=== PATIENT | female | born 1945 | race Caucasian/White ===

== ENCOUNTER 2022-10-17 12:00 | Emergency (ER) | payer MEDICARE, OTHER ==
[2022-10-17] MEDS ORDERED: Morphine 2 MG/ML SYRINGE IVPUSH ONE (12:14)
[2022-10-17 12:35] LABS: CHLORIDE,CL 103 mEq/L (98-106); SODIUM,NA 137 mEq/L (136-145)
[2022-10-17 12:41] LABS: ESTIMATED GFR 88 mL/min (>=60)
[2022-10-17 12:42] LABS: PTT,PARTIAL THROMBOPLSTIN TIME 31.9 SEC (20.0-30.0)
[2022-10-17] MEDS ORDERED: Sodium Chloride 0.9% 250 ML IV SCH (13:15)
[2022-10-17] MEDS ORDERED: Sodium Chloride 0.9% 1,000 ML IV STA (13:43)
== END 2022-10-17 14:30 ==
LOC: CC.ED 12:00
DX: I21.4 Non-ST elevation (NSTEMI) myocardial infarction (principal); D64.9 Anemia, unspecified; Z79.82 Long term (current) use of aspirin
CPT/HCPCS: 36415; 36430; 71045; 80053; 82550; 83615; 83690; 83735; 84484; 85025; 85610; 85730; 86850; 86900; 86901; 86920; 86922; 93005; 93010; 96361; 96374; 99285; 99285-25; J2270; J7030; P9016

== ENCOUNTER 2022-12-11 14:11 | Observation (INO) | payer MEDICARE, OTHER ==
[2022-12-11 14:28] LABS: BASOPHILS ABSOLUTE AUTO 0.06 10^3/uL (0.00-0.50); BASOPHILS PERCENT AUTO 0.6 % (0-1); HEMOGLOBIN 7.5 g/dL (12.0-16.0); IMMATURE GRAN ABSOLUTE AUTO 0.02 10^3/uL (0.00-0.49); IMMATURE GRAN PERCENT AUTO 0.2 % (0.0-4.9); LYMPHOCYTES ABSOLUTE AUTO 1.26 10^3/uL (0.60-5.00); LYMPHOCYTES PERCENT AUTO 13.5 % (24-44); MEAN CORPUSCULAR HEMOGLOBIN 27.2 pg (27.0-32.0); MEAN CORPUSCULAR VOLUME 90.6 fL (83.0-97.0); MONOCYTES ABSOLUTE AUTO 0.77 10^3/uL (0.00-1.50); MONOCYTES PERCENT AUTO 8.3 % (0-10); NEUTROPHILS ABSOLUTE AUTO 7.19 x10^3/uL (1.80-8.00); NEUTROPHILS PERCENT AUTO 77.4 % (41-71); PLATELET COUNT,PLT 425 10^3/uL (150-400); RED BLOOD CELL COUNT 2.76 x10^6/uL (4.00-5.50); WHITE BLOOD CELL COUNT,WBC 9.3 10^3/uL (4.0-11.0)
[2022-12-11 14:34] LABS: BLOOD UREA NITROGEN,BUN 21 mg/dL (7-18); CALCIUM 8.8 mg/dL (8.4-10.1); CARBON DIOXIDE,CO2 25 mmol/L (21-32); CHLORIDE,CL 102 mEq/L (98-106); CREATININE 0.8 mg/dL (0.6-1.0); GLUCOSE RANDOM 152 mg/dL (75-99); POTASSIUM,K 3.6 mEq/L (3.5-5.0); SODIUM,NA 135 mEq/L (136-145)
[2022-12-11 14:35] LABS: COLOR,URINE YELLOW (YELLOW); GLUCOSE,URINE NEGATIVE (NEGATIVE); KETONES,URINE 15 mg/dL (NEGATIVE); LEUKOCYTE ESTERASE,URINE SMALL (NEGATIVE); NITRITE,URINE NEGATIVE (NEGATIVE); OCCULT BLOOD,URINE MODERATE (NEGATIVE); PH,URINE 5.5 (4.5-8.0); PROTEIN,URINE 30 mg/dL (NEGATIVE); UROBILINOGEN,URINE 0.2 EU/dL (0.2-1.0)
[2022-12-11 14:37] LABS: APPEARANCE,URINE SLIGHTLY CLOUDY (CLEAR)
[2022-12-11 14:38] LABS: ESTIMATED GFR 75 mL/min (>=60)
[2022-12-11 14:41] LABS: BILIRUBIN,URINE SMALL (NEGATIVE)
[2022-12-11 14:46] LABS: BACTERIA,URINE FEW /HPF (NOT SEEN); EPITHELIAL CELLS,URINE MODERATE /HPF (NOT SEEN); MUCUS,URINE FEW /HPF (NOT SEEN); WBC,URINE 40-50 /HPF (0-5)
[2022-12-11] MEDS ORDERED: Acetaminophen 325 MG Tab PO PRN (15:58)
[2022-12-11] MEDS ORDERED: Ondansetron 4 MG Tab.DIS PO PRN (15:58)
[2022-12-11] MEDS ORDERED: Sodium Chloride 0.9% 500 ML IV ONE (16:00)
[2022-12-11] MEDS ORDERED: Sodium Chloride 0.9% 1,000 ML IV SCH (16:00)
[2022-12-11] MEDS ORDERED: Docusate Sodium 100 MG Cap PO PRN (16:01)
[2022-12-11] MEDS ORDERED: Magnesium Hydroxide 400 MG/5 ML Susp 30 ML Cup PO PRN (16:01)
[2022-12-11] MEDS ORDERED: oxyCODONE 5 MG Tab PO PRN (16:04)
[2022-12-11] MEDS ORDERED: Sodium Chloride 0.9% 250 ML IV ONE (17:18)
[2022-12-11] MEDS: Ferrous Sulfate 324 MG Tab.EC PO SCH (20:17)
[2022-12-12] MEDS ORDERED: Pantoprazole 40 MG Tab.CR PO SCH ×2 (07:00→16:19)
[2022-12-12 07:16] LABS: BASOPHILS ABSOLUTE AUTO 0.07 10^3/uL (0.00-0.50); BASOPHILS PERCENT AUTO 0.8 % (0-1); EOSINOPHILS ABSOLUTE AUTO 0.06 10^3/uL (0.00-1.50); EOSINOPHILS PERCENT AUTO 0.7 % (0-6); HEMATOCRIT 30.5 % (37.0-47.0); HEMOGLOBIN 9.5 g/dL (12.0-16.0); IMMATURE GRAN ABSOLUTE AUTO 0.03 10^3/uL (0.00-0.49); IMMATURE GRAN PERCENT AUTO 0.3 % (0.0-4.9); LYMPHOCYTES ABSOLUTE AUTO 1.19 10^3/uL (0.60-5.00); LYMPHOCYTES PERCENT AUTO 13.4 % (24-44); MEAN CORPUSCULAR HEMOGLOBIN 27.9 pg (27.0-32.0); MEAN CORPUSCULAR HGB CONC 31.1 g/dL (32.0-36.0); MEAN CORPUSCULAR VOLUME 89.7 fL (83.0-97.0); MONOCYTES ABSOLUTE AUTO 0.74 10^3/uL (0.00-1.50); MONOCYTES PERCENT AUTO 8.3 % (0-10); NEUTROPHILS ABSOLUTE AUTO 6.82 x10^3/uL (1.80-8.00); NEUTROPHILS PERCENT AUTO 76.5 % (41-71); PLATELET COUNT,PLT 440 10^3/uL (150-400); WHITE BLOOD CELL COUNT,WBC 8.9 10^3/uL (4.0-11.0)
[2022-12-12] MEDS: Ferrous Sulfate 324 MG Tab.EC PO SCH (07:20)
[2022-12-12 07:50] LABS: CALCIUM 8.3 mg/dL (8.4-10.1); CREATININE 0.6 mg/dL (0.6-1.0); EST CRCL DRUG DOSING (CG) 61.12 mL/min; POTASSIUM,K 4.1 mEq/L (3.5-5.0)
[2022-12-12] MEDS ORDERED: Multivitamin Tab PO SCH (08:00)
[2022-12-12] MEDS ORDERED: Aspirin 325 MG Tab PO SCH (08:00)
[2022-12-12] MEDS ORDERED: Sulfamethoxazole/Trimethoprim 800-160 MG Tab PO SCH (10:00)
== END 2022-12-12 11:02 | disposition home or self-care (01) ==
LOC: CC.MS 14:11 → CC.FCMC 14:11 → UNDOADMOB 15:52 → CC.MS 15:52
PROVIDERS: ADMIT Physician Assistant Medical; ATTEND Physician Assistant Medical
DX: D64.9 Anemia, unspecified (principal); E86.0 Dehydration; Z90.49 Acquired absence of other specified parts of digestive tract; Z90.89 Acquired absence of other organs; Z79.82 Long term (current) use of aspirin; Z79.899 Other long term (current) drug therapy; Z85.038 Personal history of other malignant neoplasm of large intestine; Z98.890 Other specified postprocedural states
CPT/HCPCS: 36415; 36430; 80048; 81001; 82272; 85025; 86850; 86900; 86901; 86920; 86922; 87086; 87088; 96360; 99223; 99239; A9270-GY; G0378; J1642; J7030; J7050; P9016

== ENCOUNTER 2024-02-05 19:58 | Emergency (ER) | payer MEDICARE | END 2024-02-05 21:15 | disposition home or self-care (01) | LOC: CC.ED 19:58 | DX: K94.09 Other complications of colostomy (principal); Z79.82 Long term (current) use of aspirin; Z79.899 Other long term (current) drug therapy | CPT/HCPCS: 99283; 99284 ==